=== PATIENT | female | born 1960 | race African-American/Black ===

== ENCOUNTER 2018-02-14 10:40 | Emergency (ER) | payer OTHER ==
[2018-02-14 11:10] VITALS: BP 132/78; PULSE 92; TEMP 98.7; BMI 41.9
--- NOTE | 2018-02-14 11:31 | PDOC ---
History of Present Illness - General Chief Complaint: Pain Stated Complaint: LUMP ON BREAST Time Seen by Provider: 02/14/18 11:22 History Source: Patient Exam Limitations: No Limitations - History of Present Illness Initial Comments: 02/14/18 11:31 57 yr female had left breast MRI biopsy done 2 weeks ago has bruising and swelling to the area. no redness no fever no drainage from incision site. pt did not follow with her breast surgeon in [place], however states the results are negative of the biopsy. Past History - Past Medical History Allergies/Adverse Reactions: Allergies Allergy/AdvReac Type Severity Reaction Status Date / Time acetaminophen [From Vicodin] Allergy Vomiting Verified 11/25/16 11:07 hydrocodone bitartrate Allergy Vomiting Verified 11/25/16 11:07 [From Vicodin] oxycodone HCl [From Percocet] Allergy Vomiting Verified 11/25/16 11:07 Home Medications: Ambulatory Orders Albuterol Sulfate Inhaler - [Ventolin Hfa Inhaler -] 1 - 2 inh PO QID 11/25/16 Metformin HCl [Metformin HCl ER] 1,000 mg PO BID 11/25/16 Valsartan [Diovan] 160 mg PO DAILY 11/25/16 Asthma: Yes COPD: No Diabetes: Yes HTN: Yes Hypercholesterolemia: Yes - Suicide/Smoking/Psychosocial Hx Smoking History: Never smoked Have you smoked in the past 12 months: No If you are a former smoker, when did you quit?: 30 + years Information on smoking cessation initiated: No Hx Alcohol Use: No Drug/Substance Use Hx: No Substance Use Type: None *Physical Exam - Vital Signs Last Vital Signs Temp Pulse Resp BP Pulse Ox 98.7 F 92 H 18 132/78 99 02/14/18 11:03 02/14/18 11:03 02/14/18 11:03 02/14/18 11:03 02/14/18 11:03 - Physical Exam General Appearance: Yes: Nourished, Appropriately Dressed HEENT: positive: EOMI, TESSA Neck: positive: Supple Respiratory/Chest: positive: Other (left breast with palpable firm area above the nipple, with yellow bruising noted. no redness non tender, no discharge) Medical Decision Making - Medical Decision Making 02/14/18 11:33 cc: bruising, firm area of tissue palpated, mildly tender with deep palpation the skin is dry , no redness no drainage for discharge neg lymphadenopathy discussed with pt to call her breast surgeon and follow up with them, there is no evidence of cellulitus or abscess, pt has large area of bruising, most likely hematoma , pt does state it is getting smaller. Pt states she didnt want to make the trip to [place] and came to ER instead . suggest warm compresses to the area of swelling/bruising pt agrees with the plan of care all questions asked and answered *DC/Admit/Observation/Transfer Diagnosis at time of Disposition: Breast lump in female - Discharge Dispostion Disposition: HOME Condition at time of disposition: Fair - Referrals Referrals: ON STAFF,NOT [Primary Care Provider] - - Patient Instructions Additional Instructions: please follow with your breast surgeon at [place] apply warm compresses to the area of pain every 3-4hrs for 20 minutes if you develop any fever,redness or discharge return to the ER - Post Discharge Activity
== END 2018-02-14 11:33 | disposition home or self-care (01) ==
LOC: JER 10:40
DX: N63.0 Unspecified lump in unspecified breast (principal); I10 Essential (primary) hypertension; E11.9 Type 2 diabetes mellitus without complications; Z87.891 Personal history of nicotine dependence; E78.00 Pure hypercholesterolemia, unspecified; J45.909 Unspecified asthma, uncomplicated
CPT/HCPCS: 99281-25